=== PATIENT | female | born 1935 ===

== ENCOUNTER → 2019-10-10 06:00 | Outpatient (CLI) | payer OTHER | END | disposition home or self-care (01) | LOC: EKG 06:00 → ADM 11:00 → SURH 10-12 11:00 → EDSTATUS 10-12 11:00 → ADM 10-12 11:00 → CIR.AMB 10-12 11:00 | DX: I10 Essential (primary) hypertension (principal); S52.591A Other fractures of lower end of right radius, initial encounter for closed fracture ==

== ENCOUNTER → 2019-10-10 | Emergency (ER) | payer OTHER ==
[~2019-10-10] MED LIST: ALDACTONE50 MG PO; CARVEDILOL12.5 MG; DOLOGEN 325-11 EACH PO; LIPITO PO; PLAVIX75 MG PO; TORSEMIDE10 MG PO; XARELTO15 M1 PO
== END | disposition left against medical advice (07) ==
LOC: ER 15:56
DX: Z53.20 Procedure and treatment not carried out because of patient's decision for unspecified reasons (principal)

== ENCOUNTER 2021-03-31 07:26 | Outpatient (CLI) | payer OTHER | END 2021-03-31 07:31 | disposition home or self-care (01) | LOC: TOM 07:26 | PROVIDERS: ATTEND Internal Medicine Gastroenterology | DX: K57.90 Diverticulosis of intestine, part unspecified, without perforation or abscess without bleeding (principal); R19.5 Other fecal abnormalities; Z79.01 Long term (current) use of anticoagulants ==